=== PATIENT | female | born 1990 | race Caucasian/White ===

== ENCOUNTER → 2018-02-18 | Outpatient (CLI) | payer OTHER ==
[~2018-02-18] MED LIST: DOCO200C PO; PRED1%O LEFT EYE; PRED1%O RIGHT EYE; TIMO0.2525 EACH EYE
== END ==
LOC: HPND 08:41
PROVIDERS: ATTEND Obstetrics & Gynecology
DX: Z36.82 Encounter for antenatal screening for nuchal translucency (principal); O35.1XX0 Maternal care for (suspected) chromosomal abnormality in fetus, not applicable or unspecified
CPT/HCPCS: 76813

== ENCOUNTER 2018-08-30 07:45 | Inpatient (IN) ==
[2018-08-30 08:34] LABS: Baso # (Auto) 0.1 th/mm3 (0.0-0.2); Baso % (Auto) 0.5 % (0.0-2.0); Eos % (Auto) 0.4 % (0.0-4.0); Hemoglobin 12.8 gm/dL (11.6-15.3); Lymph # (Auto) 1.8 th/mm3 (1.0-4.8); Lymph % (Auto) 16.6 % (9.0-44.0); Mean Corpuscular HGB Conc 34.7 % (32.0-36.0); Mean Corpuscular Hemoglobin 34.5 pg (27.0-34.0); Mean Corpuscular Volume 99.6 fL (80.0-100.0); Mean Platelet Volume 9.4 fL (7.0-11.0); Mono # (Auto) 0.6 th/mm3 (0.0-0.9); Mono % (Auto) 5.7 % (0.0-8.0); Neut # (Auto) 8.2 th/mm3 (1.8-7.7); Neut % (Auto) 76.8 % (16.0-70.0); Platelet Count 170 th/mm3 (150-450); Red Blood Count 3.72 mil/mm3 (4.00-5.30); Red Cell Distribution Width 12.9 % (11.6-17.2); White Blood Count 10.7 th/mm3 (4.0-11.0)
[2018-08-30 08:42] LABS: Bacteria,Urine Occasional /hpf; Bilirubin,Urine Negative (Negative); Clarity,Urine Clear (Clear); Color,Urine Yellow (Yellw/Straw); Glucose,Urine (UA) Negative (Negative); Leukocyte Esterase,Urine Small (Negative); Mucus,Urine Few /lpf (Occasional); Nitrite,Urine Negative (Negative); Specific Gravity,Urine 1.011 (1.002-1.035); Squamous Epithelial Cell,Urine 2 /hpf (0-5)
[2018-08-30] MEDS ORDERED: Sod Chloride 0.9% Inj 1,000 ML IV.CONT PRN (08:42)
[2018-08-30] MEDS ORDERED: fentaNYL Citrate Inj 100 MCG/2 ML Ampul IV.PUSH PRN ×2 (08:42)
[2018-08-30] MEDS ORDERED: Naloxone Inj 0.4 MG/ML Vial IV.PUSH PRN ×2 (08:42→13:20)
[2018-08-30] MEDS ORDERED: Sodium Chlor 0.9% Inj 500 ML IV.SIG PRN (08:42)
[2018-08-30 08:44] LABS: Amphetamine Urine With Conf Neg (Neg); Benzodiazepine Urine With Conf Neg (Neg)
[2018-08-30] MEDS ORDERED: Citric Acid/Sodium Citrate Liq 30 ML UDC PO SCH (08:45)
[2018-08-30] MEDS ORDERED: Oxytocin 30 Units/500ml Premix 30 UNITS/500 ML BAG IV.SIG ONE (09:00)
[2018-08-30] MEDS ORDERED: fentaNYL 2MCG-Bupiv 0.125% Epi 150 ML EPIDURAL ONE (09:02)
--- NOTE | 2018-08-30 09:09 | P.OBGPN ---
S: Doing well, painful contractions, no bleeding or fluid leakage O: Exam: /-1/posterior. AROM this check clear fluid FHTs: 130s, moderate variability, accelerations present, no decelerations TOCO: regular contractions every 3-5 minutes A/P 27-year-old at 40 weeks and 1 day admitted for labor 1. IUP: Category 1 tracing -Male fetus, cephalic by exam, GBS negative, EFW 7.5 pounds. 2. Labor: AROM this check, continue expectant management, Pitocin if needed, anticipate . Patient calling for epidural now.
--- NOTE | 2018-08-30 09:13 | P.HPOB ---
History of Present Illness Primary Care Physician: No Primary Care Physician History of Present Illness: 27-year-old at 40 weeks and 1 day by her stated JACKIE presents in labor. has been uncomplicated. 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 This includes certification that hospital inpatient services are reasonable and necessary and in the case of services not specified as inpatient-only under 42 CFR 419.22(n), that they are appropriately provided as inpatient services in accordance to with the 2-midnight benchmark under 43 CFR 412.3(e) Estimated Total Length of Stay (Days): 2 Plans for Post Hospital Care: Home Review of Systems All other systems reviewed negative except as stated in HPI PMFSH - History History Provided By: Patient - Medical / Surgical Hx Neg / Unobtainable Medical Problems Denied: Yes - Social History I have reviewed the patient's Social History: Yes - Tobacco History Second Hand Smoke Exposure: No Tobacco Use In Past 30 Days: No - Alcohol History How Often Do You Have a Drink Containing Alcohol: Never - Substance Use History Substance History: No History of Abuse - Travel History Recent Travel in the [place] Within the Last 8 Weeks: No Recent Travel Out of the Country Within the Last 8 Weeks: No - Immunization History Hx Influenza Vaccine This Season: No Medications and Allergies Active Medications: Active Medications Citric Acid/Sodium Citrate (Sodium Citrate/Citric Acid Liq) 30 ml PO [facility] Stop: 09/03/18 08:44 Fentanyl Citrate (Fentanyl Inj) 50 mcg IV.PUSH Q1H PRN PRN Reason: Pain Scale 3 - 5 Fentanyl Citrate (Fentanyl Inj) 100 mcg IV.PUSH Q1H PRN PRN Reason: PAIN SCALE 6 TO 10 Lactated Ringer's (Lr 1000 Ml Inj) 1,000 mls @ 125 mls/hr IV.CONT .Q8H [facility] Lactated Ringer's (Lr 1000 Ml Inj) 1,000 mls @ 3,000 mls/hr IV.SIG UNSCH PRN PRN Reason: compromise or epidural Sodium Chloride (Ns Inj) 500 mls @ 1,000 mls/hr IV.SIG UNSCH PRN PRN Reason: SEE LABEL COMMENTS Sodium Chloride (Ns Inj) 1,000 mls @ 100 mls/hr IV.CONT .Q10H PRN PRN Reason: SEE LABEL COMMENTS Oxytocin (Pitocin 30 Units/Ns 500 Ml Premix) 30 units in 500 mls @ 999 mls/hr IV.SIG BOLUS ONE Stop: 08/30/18 09:30 Lidocaine HCl (Xylocaine 1% Inj) 10 ml SQ UNSCH X1 PRN PRN Reason: EPISIOTOMY REPAIR Stop: 09/01/18 08:59 Lidocaine HCl (Xylocaine 1% Inj) 0.1 ml I-DERMAL PRN PRN PRN Reason: For IV start Stop: 09/02/18 08:41 Mineral Oil (Muri-Lube Oil) 10 ml TOPICAL PRN PRN PRN Reason: PRN perineal massage Naloxone HCl (Narcan Inj) 0.1 mg IV.PUSH Q2M PRN PRN Reason: for opiate reversal Allergies Allergy/AdvReac Type Severity Reaction Status Date / Time No Known Allergies Allergy Verified 08/30/18 08:05 Home Medications Medication Instructions Recorded Confirmed Type 21-iron fu-folic acid 1 tab PO DAILY 08/30/18 08/30/18 History [ Complete] Exam Vital signs: Vital Signs 08/30/18 08:22 Temperature 98.2 F Pulse Rate 91 H Respiratory Rate 16 Blood Pressure 120/84 Intake & Output 08/29/18 08/30/18 08/30/18 18:59 06:59 18:59 Weight 67.585 kg Other: Weight On Admission 67.585 kg - Constitutional no acute distress - Routine HEENT Exam Head: Present: normocephalic Eye: Present: EOMI - Routine Neck Exam Present: full ROM - Routine Respiratory Exam Present: CTA bilaterally - Routine Cardiovascular Exam Present: RRR - Routine Abdominal Exam Present: soft - Routine Exam Comments: Normal external female genitalia: Cervix 5 cm / 80% effaced/-1 station. Membranes artificially ruptured this check with clear fluid. - Routine Skin Exam Present: intact - Routine Neurological Exam Present: alert, oriented X3 Results - Labs CBC & Chem 7: 08/30/18 08:20 Labs: Laboratory Results - last 24 hr 08/30/18 08/30/18 08/30/18 08:20 08:20 08:20 WBC 10.7 RBC 3.72 L Hgb 12.8 Hct 37.0 MCV 99.6 MCH 34.5 H MCHC 34.7 RDW 12.9 Plt Count 170 MPV 9.4 Neut % (Auto) 76.8 H Lymph % (Auto) 16.6 Emmet % (Auto) 5.7 Eos % (Auto) 0.4 Baso % (Auto) 0.5 Neut # (Auto) 8.2 H Lymph # (Auto) 1.8 Emmet # (Auto) 0.6 Eos # (Auto) 0.0 Baso # (Auto) 0.1 WBC Differential . Differential Comment Auto diff final Urine Color Yellow Urine Clarity Clear Urine pH 6.0 Ur Specific [place] 1.011 Urine Protein Negative Urine Glucose (UA) Negative Urine Ketones Negative Urine Occult Blood Negative Urine Nitrate Negative Urine Bilirubin Negative Urine Urobilinogen Less than 2 Ur Leukocyte Esterase Small H Urine RBC Less than 1 Urine WBC 4 Ur Squamous Epith Cells 2 Urine Bacteria Occasional H Urine Mucus Few H Micro UA Comment Culture not ind Ur Microscopic Review Not Reportable Urine Culture Comments Culture not ind Urine Opiates Screen Neg Ur Barbiturates Screen Neg Ur Amphetamine Screen Neg U Benzodiazepines Scrn Neg Urine Cocaine Screen Neg U Cannabinoids Screen Neg Caprini VTE Risk Assessment Caprini VTE Risk Assessment: No/Low Risk (score <= 1) Caprini Risk Assessment Model: Point Value = 1 Point Value = 2 Point Value = 3 Point Value = 5 Age 41-60 Minor surgery BMI > 25 kg/m2 Swollen legs Varicose veins or History of unexplained or recurrent spontaneous Oral contraceptives or hormone replacement Sepsis (< 1 month) Serious lung disease, including pneumonia (< 1 month) Abnormal pulmonary function Acute myocardial infarction Congestive heart failure (< 1 month) History of inflammatory bowel disease Medical patient at bed rest Age 61-74 Arthroscopic surgery Major open surgery (> 45 min) Laparoscopic surgery (> 45 min) Malignancy Confined to bed (> 72 hours) Immobilizing plaster cast Central venous access Age >= 75 History of VTE Family history of VTE Factor V Leiden Prothrombin [id number] Lupus anticoagulant Anticardiolipin antibodies Elevated serum homocysteine Heparin-induced thrombocytopenia Other congenital or acquired thrombophilia Stroke (< 1 month) Elective arthroplasty Hip, pelvis, or leg fracture Acute spinal cord injury (< 1 month) Prophylaxis Regimen: Total Risk Factor Score Risk Level Prophylaxis Regimen 0-1 Low Early ambulation 2 Moderate Order ONE of the following: *Sequential Compression Device (SCD) *Heparin 5000 units SQ BID 3-4 Higher Order ONE of the following medications: *Heparin 5000 units SQ TID *Enoxaparin/Lovenox 40 mg SQ daily (WT < 150 kg, CrCl > 30 mL/min) *Enoxaparin/Lovenox 30 mg SQ daily (WT < 150 kg, CrCl > 10-29 mL/min) *Enoxaparin/Lovenox 30 mg SQ BID (WT < 150 kg, CrCl > 30 mL/min) AND/OR *Sequential Compression Device (SCD) 5 or more Highest Order ONE of the following medications: *Heparin 5000 units SQ TID (Preferred with Epidurals) *Enoxaparin/Lovenox 40 mg SQ daily (WT < 150 kg, CrCl > 30 mL/min) *Enoxaparin/Lovenox 30 mg SQ daily (WT < 150 kg, CrCl > 10-29 mL/min) *Enoxaparin/Lovenox 30 mg SQ BID (WT < 150 kg, CrCl > 30 mL/min) AND *Sequential Compression Device (SCD) Assessment and Plan - Plan FHTs: 130s, moderate variability, accelerations present, no decelerations TOCO: regular contractions every 3-5 minutes A/P 27-year-old at 40 weeks and 1 day admitted for labor 1. IUP: Category 1 tracing -Male fetus, cephalic by exam, GBS negative, EFW 7.5 pounds. 2. Labor: AROM this check, continue expectant management, Pitocin if needed, anticipate . Patient calling for epidural now.
[2018-08-30] MEDS ORDERED: Lidocaaine 1.5%/Epinephrine 1:200,000 PF Inj 5 ML Amp ONE (09:17)
[2018-08-30] MEDS ORDERED: Lidocaine PF 1% Inj 5 ML Vial ONE (09:17)
[2018-08-30] MEDS ORDERED: fentaNYL 2MCG-Bupiv 0.125% Epi 150 ML EPIDURAL PRN (10:14)
[2018-08-30] MEDS ORDERED: fentaNYL Citrate Inj 100 MCG/2 ML Ampul EPIDURAL ONE (10:14)
[2018-08-30] MEDS ORDERED: Zolpidem Tartrate 5 MG Tablet PO PRN (13:20)
[2018-08-30] MEDS ORDERED: Oxytocin 30 Units/500ml Premix 30 UNITS/500 ML BAG IV.CONT PRN (13:20)
[2018-08-30] MEDS ORDERED: Benzocaine 20% Top Spray 60 ML Can TOPICAL PRN (13:20)
[2018-08-30] MEDS ORDERED: Bisacodyl 10 MG Supp RECTAL PRN (13:20)
[2018-08-30] MEDS ORDERED: Witch Hazel 50%/Glyderin 12.5% 40 Pad Jar RECTAL PRN (13:20)
--- NOTE | 2018-08-30 13:20 | P.OBDELI ---
Weeks Gestation: 40 Patient Started Active Labor: Yes Active Labor Start Date: 08/30/18 Active Labor Start Time: 04:30 Medical Induction of Labor: No Artificial Rupture of Membrane: Yes Artificial ROM Date: 08/30/18 Artificial ROM Time: 08:40 Anesthesia: Epidural Episiotomy: none Vaginal Delivery: Normal Presentation: Occiput anterior Nuchal Cord: None Delayed Cord Clamping (45 sec): Yes Placenta: Spontaneous delivery Laceration: Vaginal (midline periurethral) Repair: Vicryl running (Indwelling doe catheter placed befoer repair) Estimated blood loss (mL): 250 Infant: Male Infant Delivery Date: 08/30/18 score (1 min): 8 score (5 min): 9
[2018-08-30] MEDS ORDERED: Diphtheria/Tetanus/Pertussis Vaccine Inj 0.5 ML Syringe IM ONE (16:00)
[2018-08-30] MEDS ORDERED: Measles/Mumps/Rubella Vaccine Inj 0.5 ML Vial SQ ONE (16:00)
[2018-08-30] MEDS ORDERED: Senna/Docusate Sodium 8.6/50 MG Tablet PO SCH (21:00)
[2018-08-30] MEDS: Acetaminophen 325 MG Tablet PO PRN (22:03)
[2018-08-31] MEDS: Acetaminophen 325 MG Tablet PO PRN (05:57)
[2018-08-31 07:44] VITALS: BP 105/66; PULSE 68; RESP 13; TEMP 98.2
--- NOTE | 2018-08-31 08:40 | P.PNOB ---
Subjective Post day: 1 Interval history: PPD#1; s/p with small urethral tear, no c/o.AVSS Objective Vital Signs/I&O: Vital Signs 08/30/18 08:55 08/30/18 09:25 08/30/18 09:45 Temperature 97.9 F Pulse Rate 84 88 103 H Respiratory Rate Blood Pressure 105/64 92/63 L 08/30/18 10:00 08/30/18 10:12 08/30/18 10:21 Temperature Pulse Rate 72 103 H 74 Respiratory Rate 16 Blood Pressure 115/90 91/60 L 105/63 08/30/18 10:25 08/30/18 10:40 08/30/18 11:40 Temperature Pulse Rate 88 78 86 Respiratory Rate Blood Pressure 89/50 L 100/65 95/56 L 08/30/18 12:10 08/30/18 12:15 08/30/18 12:30 Temperature 97.5 F L Pulse Rate 79 79 Respiratory Rate 16 Blood Pressure 99/50 L 92/66 L 08/30/18 12:50 08/30/18 13:03 08/30/18 13:31 Temperature 97.8 F Pulse Rate 104 H 91 H 123 H Respiratory Rate 18 Blood Pressure 96/65 L 90/41 L 08/30/18 14:30 08/30/18 19:40 08/31/18 07:43 Temperature 98.0 F 98.4 F 98.2 F Pulse Rate 88 74 68 Respiratory Rate 18 18 13 Blood Pressure 107/67 104/61 105/66 Intake & Output 08/30/18 08/31/18 08/31/18 18:59 06:59 18:59 Intake Total 1000 / 1000 Balance 1000 / 1000 Weight 67.585 kg Intake: IV 1000 / 1000 LR 1000 mL Inj 1,000 ML @ 125 1000 / 1000 mls/hr IV.CONT .Q8H [facility] Rx#: [id number] Other: Weight On Admission 67.585 kg Result Diagrams: 08/30/18 08:20 Objective Remarks: GENERAL: Well-nourished, well-developed patient. CARDIOVASCULAR: Regular rate and rhythm without murmurs, gallops, or rubs. RESPIRATORY: Breath sounds equal bilaterally. No accessory muscle use. ABDOMEN/GI: Abdomen soft, non-tender. Fundus: Firm, non-tender at umbilicus. GENITOURINARY: Light to moderate bleeding. EXTREMITIES: No cyanosis or edema, non-tender, without signs of DVT. Medications and IVs: Active Medications Acetaminophen (Tylenol) 650 mg PO Q4H PRN PRN Reason: PAIN SCALE 1 TO 2 Last Admin: 08/31/18 05:57 Dose: 650 mg Al Hydroxide/Mg Hydroxide (Milk Of Magnesia Liq) 30 ml PO Q12H PRN PRN Reason: Mild Constipation Benzocaine (Americaine 20% Top [place]) 1 spray TOPICAL Q4H PRN PRN Reason: For Perineum Discomfort Bisacodyl (Dulcolax Supp) 10 mg RECTAL DAILY PRN PRN Reason: SEVERE CONSITIPATION Citric Acid/Sodium Citrate (Sodium Citrate/Citric Acid Liq) 30 ml PO DRY LUMBER GRADER [facility] Stop: 09/03/18 08:44 Ephedrine Sulfate (Ephedrine/Ns Syringe) 10 mg IV.PUSH UNSCH PRN PRN Reason: SEE LABEL COMMENTS Stop: 08/31/18 10:15 Fentanyl Citrate (Fentanyl Inj) 50 mcg IV.PUSH Q1H PRN PRN Reason: Pain Scale 3 - 5 Fentanyl Citrate (Fentanyl Inj) 100 mcg IV.PUSH Q1H PRN PRN Reason: PAIN SCALE 6 TO 10 Lactated Ringer's (Lr 1000 Ml Inj) 1,000 mls @ 125 mls/hr IV.CONT .Q8H [facility] Last Admin: 08/31/18 01:51 Dose: Not Given Lactated Ringer's (Lr 1000 Ml Inj) 1,000 mls @ 3,000 mls/hr IV.SIG UNSCH PRN PRN Reason: compromise or epidural Last Admin: 08/30/18 08:28 Dose: 3,000 mls/hr Sodium Chloride (Ns Inj) 500 mls @ 1,000 mls/hr IV.SIG UNSCH PRN PRN Reason: SEE LABEL COMMENTS Sodium Chloride (Ns Inj) 1,000 mls @ 100 mls/hr IV.CONT .Q10H PRN PRN Reason: SEE LABEL COMMENTS Fentanyl/Bupivacaine/Sodium Chlor (Fentanyl 2 Mcg-Bupiv 0.125% Epi) 150 mls @ 12 mls/hr EPIDURAL PRN PRN PRN Reason: for Labor Pain Oxytocin (Pitocin 30 Units/Ns 500 Ml Premix) 30 units in 500 mls @ 100 mls/hr IV.CONT UNSCH PRN PRN Reason: Heavy bleeding Ibuprofen (Motrin) 800 mg PO Q8H PRN PRN Reason: For Cramping Last Admin: 08/31/18 05:58 Dose: 800 mg Lactulose (Lactulose Liq) 30 ml PO DAILY PRN PRN Reason: SEVERE CONSITIPATION Lidocaine HCl (Xylocaine 1% Inj) 10 ml SQ UNSCH X1 PRN PRN Reason: EPISIOTOMY REPAIR Stop: 09/01/18 08:59 Lidocaine HCl (Xylocaine 1% Inj) 0.1 ml I-DERMAL PRN PRN PRN Reason: For IV start Stop: 09/02/18 08:41 Mineral Oil (Muri-Lube Oil) 10 ml TOPICAL PRN PRN PRN Reason: PRN perineal massage Miscellaneous Information (Misc Information) 1 each OTHER UNSCH PRN PRN Reason: SEE LABEL COMMENTS Stop: 08/31/18 10:15 Miscellaneous Information (Misc Information) 1 each OTHER UNSCH PRN PRN Reason: SEE LABEL COMMENTS Stop: 08/31/18 10:15 Naloxone HCl (Narcan Inj) 0.1 mg IV.PUSH Q2M PRN PRN Reason: for opiate reversal Naloxone HCl (Narcan Inj) 0.1 mg IV.PUSH Q2M PRN PRN Reason: for opiate reversal Ondansetron HCl (Zofran Odt) 4 mg PO Q6H PRN PRN Reason: NAUSEA OR VOMITING Oxytocin (Pitocin Inj) 20 unit IV.SIG ONCE PRN PRN Reason: For excessive bleeding Stop: 08/31/18 13:19 Senna/Docusate Sodium (Leslie-Colace) 1 tab PO BID [facility] Last Admin: 08/30/18 22:00 Dose: Not Given Sennosides (Senokot) 17.2 mg PO Q12H PRN PRN Reason: Moderate Constipation Sodium Chloride (Ns Flush) 2 ml IV.FLUSH BID [facility] Last Admin: 08/30/18 22:05 Dose: 2 ml Sodium Chloride (Ns Flush) 2 ml IV.FLUSH PRN PRN PRN Reason: FLUSH AFTER USING IV ACCESS [place]/Glycerin (Tucks Pads) 1 applicatio RECTAL QID PRN PRN Reason: HEMORRHOIDS Zolpidem Tartrate (Ambien) 5 mg PO HS PRN PRN Reason: SLEEP Assessment and Plan - Plan FHTs: 130s, moderate variability, accelerations present, no decelerations TOCO: regular contractions every 3-5 minutes A/P 27-year-old at 40 weeks and 1 day admitted for labor 1. IUP: Category 1 tracing -Male fetus, cephalic by exam, GBS negative, EFW 7.5 pounds. 2. Labor: AROM this check, continue expectant management, Pitocin if needed, anticipate . Patient calling for epidural now. PPD#1; Stable, will remove doe and await voiding trial. Consider discharge later today if voiding spontaneously. Discharge Planning: routine ,possible discharge today @17:00
--- NOTE | 2018-08-31 12:23 | P.PCNCIRC ---
Procedure Date: 08/31/18 Procedure Time: 12:15 Procedure: Circumcision Pre-procedure diagnosis: circumcision Post-procedure diagnosis: circumcision Informed Consent: The risks, benefits, indications, potential complications, and alternatives were explained to the patient/family and informed consent obtained. The baby was brought to the procedure room where a time-out was done to ID the patient and the procedure. Performing Physician: Antoni Hays MD Anesthesia used: 1 % lidocaine injected Type of block: dorsal penile block Device used: Mogen Description: The baby was prepped and draped in a sterile fashion. The procedure followed standard technique. The baby tolerated the procedure well without complication. Findings: Normal genitalia Estimated blood loss: none Specimen: No
== END 2018-08-31 15:32 | disposition home or self-care (01) ==
LOC: EDSTATUS 07:50 → H2E 07:50 → H1EA 14:17
PROVIDERS: ADMIT Obstetrics & Gynecology; ATTEND Obstetrics & Gynecology